=== PATIENT | male | born 1975 | race Native Hawaiian/Other Pacific Islander ===

== ENCOUNTER 2020-11-27 11:53 | Outpatient (CLI) | payer OTHER ==
[2020-11-27 12:13] LABS: PLATELET COUNT 256 K/uL (142-355)
[2020-11-27 12:46] LABS: POTASSIUM 4.4 mmol/L (3.6-5.2)
== END 2020-11-27 21:43 | disposition home or self-care (01) ==
LOC: LABW 11:53
PROVIDERS: ATTEND Specialist
DX: R47.02 Dysphasia (principal); K21.9 Gastro-esophageal reflux disease without esophagitis
CPT/HCPCS: 36415; 80053; 82150; 83690; 85027; 86318